=== PATIENT | male | born 1990 | race Caucasian/White ===

== ENCOUNTER 2024-01-13 07:17 | Outpatient (NON) | payer OTHER, SELFPAY | END 2024-01-13 07:18 | disposition home or self-care (01) | PROVIDERS: PCP Family Medicine; Visit Provider Internal Medicine Gastroenterology | DX: K62.1 Rectal polyp (principal); Z80.0 Family history of malignant neoplasm of digestive organs | CPT/HCPCS: 88305 ==

== ENCOUNTER 2024-01-13 09:02 | Day surgery (SDC) | payer OTHER, SELFPAY ==
[2023-12-07 15:19] VITALS: BMI 26.1
[2023-12-10 11:45] VITALS: BMI 25.0
[2024-01-13 09:25] VITALS: BP 126/93; PULSE 110; RESP 18; TEMP 36.9; O2SAT 100
--- NOTE | 2024-01-13 09:33 | PM.HPGS ---
History of Present Illness History of Present Illness Consent: Risks, benefits, and alternatives have been discussed and questions answered. Patient agrees to proceed with procedure. Chief complaint: Family History of colon cancer IBS Narrative: Garret Justice is a 33 year old male presents for colonoscopy. Patient's current weight appetite are normal. The patient reports Irregular bowel movements. He has had no bleeding. Patient's father has a history of colon cancer. Is referred today for surveillance colonoscopy. Review of Systems Review of Systems: All systems reviewed & are unremarkable except as noted in HPI and below PMFSH Past Medical History Medical History Pleurisy Family History Family History Father Family history of colitis Colon polyp Grandparent Carcinoma of colon, Onset Age: 50 Social History Social History Smoking status: Never smoker Alcohol intake: current Substance use: never Substance use type: does not use Living arrangements: with family Spiritual care concerns: No Meds Home Medications and Allergies Home Medications Medication Instructions Recorded Confirmed Type metformin 500 mg tablet,extended 500 mg PO BID #180 tabs 12/04/23 01/13/24 Rx release 24 hr Allergies Allergy/AdvReac Type Severity Reaction Status Date / Time No Known Allergies Allergy Verified 01/13/24 09:26 Vital Signs Vital Signs - 24 hr 01/13/24 09:25 Temperature 98.5 F Pulse Rate 110 H Respiratory Rate 18 Blood Pressure 126/93 H Pulse Oximetry 100 Oxygen Delivery Room Air Exam Narrative: Physical exam reveals patient to be alert. Vital signs stable. HEENT exam is unremarkable. Patient is anicteric. Is are clear to auscultation and to percussion. Heart Is without murmur or extra sounds. Abdomen bowel sounds are present soft nontender with no organomegaly. Digital external rectal exam normal. Assessment and Plan Assessment and plan (1) Family history of colon cancer in father: Code(s): Z80.0 - Family history of malignant neoplasm of digestive organs Status: Acute Assessment and Plan: Patient's father had colon cancer. Plan for surveillance colonoscopy now and consider this at 5 year intervals. High fiber Diet advised because of irregular bowel movements.
[2024-01-13] MEDS: LACTATED RINGERS 1,000 ML 150 ML IV CONT (09:38)
[2024-01-13 09:57] LABS: Glucose Point of Care 118 mg/dl (65-105)
--- NOTE | 2024-01-13 10:24 | P.PNAN_ITS ---
Anes - Initial Pre Proc Eval Procedure: Operation Date: 01/13/24 10:30 Proposed Procedures p Diagnostic Colonoscopy - Ihsan Solis MD Date/Time: 01/13/24 10:24 Surgeon: Ihsan Solis MD Pre Op Diagnosis: Family History of colon cancer IBS Patient Data Age: 33 Gender: M Height: 1.8 m Weight: 81.7 kg Last Vital Signs Temp 36.9 C 01/13/24 09:25 Pulse 110 H 01/13/24 09:25 Resp 18 01/13/24 09:25 BP 126/93 H 01/13/24 09:25 Pulse Ox 100 01/13/24 09:25 O2 Del Method Room Air 01/13/24 09:25 Allergies Allergy/AdvReac Type Severity Reaction Status Date / Time No Known Allergies Allergy Verified 01/13/24 09:26 Home Medications Medication Instructions Recorded Confirmed Type metformin 500 mg tablet,extended 500 mg PO BID #180 tabs 12/04/23 01/13/24 Rx release 24 hr Laboratory Tests 01/13/24 09:53 POC Capillary Glucose 118 H mg/dl (65-105) Patient hx anesthesia problems: none Family hx anesthesia problems: none Results Review: All pre-operative results and documents have been reviewed as part of the pre- operative evaluation. PMFSH Past Medical History Medical History Pleurisy Family History Family History Father Family history of colitis Colon polyp Grandparent Carcinoma of colon, Onset Age: 50 Social History Social History Smoking status: Never smoker Alcohol intake: current Substance use: never Substance use type: does not use Living arrangements: with family Spiritual care concerns: No Anes - Eval Final PreProcedure Day of Procedure 01/13/24 10:24 Patient weight: normal Heart: regular rate and rhythm Lungs: clear to auscultation Airway: Mallampati scale class II Neurological: alert and oriented Last oral intake: >/= 8 hours ASA classification: II Emergent: no Anesthetic plan: proceed Anesthesia type and monitoring: general GIVS and standard monitoring Results Review: All pre-operative results and documents have been reviewed as part of the pre- operative evaluation. Informed Consent: The patient's anesthetic plan and its attendant risks and benefits were d iscussed with the patient/family/POA. Questions were solicited and answers provided to the satisfaction of the patient/family/POA.
[2024-01-13] MEDS: SIMETHICONE ORAL SUSPENSION 20 MG/0.3 ML 30 ML BOTTLE 0.6 ML IRRIGATION (10:51)
[2024-01-13 10:59] VITALS: BP 107/78; PULSE 88; RESP 15; O2SAT 100
[2024-01-13 11:09] VITALS: BP 107/78; PULSE 86; RESP 14; O2SAT 100
[2024-01-13 11:19] VITALS: BP 103/78; PULSE 75; RESP 14; O2SAT 100
--- NOTE | 2024-01-13 11:38 | WPDANESPN ---
Anes - Prog Note Post-Op Date/Time: 01/13/24 11:38 Cardiovascular status: normal Respiratory status: normal Airway patency: baseline Mental status: baseline Post-Op hydration status: normal Vital Signs: Last Vital Signs Temp 36.9 C 01/13/24 09:25 Pulse 75 01/13/24 11:19 Resp 14 01/13/24 11:19 BP 103/78 01/13/24 11:19 Pulse Ox 100 01/13/24 11:19 O2 Del Method Room Air 01/13/24 11:19 Pain Score (VAS): 0 I/O: Intake & Output 01/12/24 01/13/24 01/13/24 23:59 07:59 15:59 Intake Total 600 Balance 600 01/13/24 09:53 POC Capillary Glucose 118 H Patient Feedback: Patient satisfied with anesthetic care.
== END 2024-01-13 11:30 | disposition home or self-care (01) ==
PROVIDERS: PCP Family Medicine; Visit Provider Internal Medicine Gastroenterology
PROC: 0DJD8ZZ Inspection of Lower Intestinal Tract, Via Natural or Artificial Opening Endoscopic (ICD-10-PCS; CPT 45378; principal; 2024-01-13 10:30)
DX: Z80.0 Family history of malignant neoplasm of digestive organs (principal); D12.8 Benign neoplasm of rectum; R19.4 Change in bowel habit
CPT/HCPCS: 45385